=== PATIENT | female | born 1965 | race Caucasian/White ===

== ENCOUNTER 2024-04-13 15:24 | Outpatient (CLI) | payer MEDICAID ==
[2024-04-13] MEDS: iohexoL-300 150 ML BOTTLE IVP ONE (15:30)
[2024-04-13] MEDS ORDERED: iohexoL-300 150 ML BOTTLE ONE (15:44)
[2024-04-13] MEDS ORDERED: iohexoL-300 150 ML BOTTLE IVP ONE (16:26)
--- NOTE | 2024-04-13 20:34 | CT Report ---
PROCEDURE: IVP INDICATIONS: HEMATURIA CONTRAST: 150 mL Isovue-300 TECHNIQUE: A [address] of the abdomen and pelvis was performed. Non-contrast and contrast images were recorded and evaluated at appropriate window settings. Images were recorded and evaluated at appropriate windo w settings. Reformats: coronal and sagittal. For radiation dose reduction, the following was used: au tomated exposure control, adjustment of mA and/or kV according to patient size. COMPARISON: None. FINDINGS: Image quality: Diagnostic. Lower chest: Unremarkable. Liver: 1.5 cm enhancing lesion in segment 7 of the liver (series 10, image 11). Gallbladder: Absent. Biliary tree: No intrahepatic or extrahepatic dilation, accounting for a post-cholecystectomy state. Spleen: No splenomegaly. Pancreas: No pancreatic ductal dilation. Adrenals: No adrenal nodule. Kidneys and ureters: Both kidneys are normal in size. Moderate burden of nonobstructive right-sided n ephrolithiasis, largest stone measuring 5 to 6 mm. Small burden of punctate, nonobstructing left-side d nephrolithiasis. No solid masses or complex cysts which require follow up. The opacified renal buffy elio and ureters appear normal, without filling defect. Stomach, bowel and peritoneum: No bowel distension. No pathologic free fluid. 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 Colonic diverticulosis without evidence of divertic ulitis. Normal appendix. Abdominal Lymph nodes: No central or retroperitoneal adenopathy. Vessels: Unremarkable. Patent portal vein. Reproductive organs: Unremarkable. Bladder: No abnormal wall thickening, accounting for underdistention. No calcified bladder stones. No filling defect within the opacified bladder. Pelvic Lymph nodes: Unremarkable. Bones: No aggressive osseous abnormality. Other: None. IMPRESSION: Moderate burden of right-sided nephrolithiasis and small burden of left-sided nephrolithiasis, withou t obstruction. No filling defects within the opacified renal collecting systems or ureters. Bladder i s incompletely distended with contrast. 1.5 cm enhancing lesion in segment 7 of the liver. If there is no history of malignancy or liver dise ase, recommend ultrasound to confirm the presence of a hemangioma. If there is a history of malignanc y or risk factors for liver disease, recommend MRI for characterization to exclude malignant lesion. Colonic diverticulosis without evidence of diverticulitis. Reviewed by: Ming Sloan MD on 04/13/2024 8:33 PM PDT Approved by: Ming Sloan MD on 04/13/2024 8:33 PM PDT Station ID: [id number]
== END 2024-04-13 15:25 | disposition home or self-care (01) ==
LOC: DI 15:24
PROVIDERS: ATTEND Physician Assistant Medical
DX: N20.0 Calculus of kidney (principal); K76.9 Liver disease, unspecified; K57.30 Diverticulosis of large intestine without perforation or abscess without bleeding